=== PATIENT | male | born 1975 | race Caucasian/White ===

== ENCOUNTER 2022-04-09 23:08 | Emergency (ER) | payer BC ==
[~2022-04-09] VITALS: Ht 168 cm; Wt 73.4 kg
[~2022-04-09 23:08] MED LIST: CIPR-225 PO; HYDR-4226 PO; LORA0.5T PO; METR500T PO; OMEP20TA33 PO; ONDA8TAB9 PO
[2022-04-10 00:47] VITALS: BP_SYST 120; BP_SYST 123; BP_SYST 134; BP_DIAS 82; BP_DIAS 83; BP_DIAS 90
[2022-04-10] MEDS ORDERED: FAMOTIDINE 20MG/2ML IV (PEPCID) IV STA (01:09)
[2022-04-10 01:20] LABS: BASOPHILS % (AUTO) 0 % (0-10); EOSINOPHILS # (AUTO) 0.2 10^3/uL (0.0-0.3); EOSINOPHILS % (AUTO) 2 % (0-10); HEMATOCRIT 49 % (40-54); HEMOGLOBIN 16.4 g/dL (13.3-17.7); LYMPHOCYTES # (AUTO) 2.7 10^3/uL (1.0-4.0); LYMPHOCYTES % (AUTO) 28 % (12-44); MEAN CORPUSCULAR HEMOGLOBIN 30 pg (25-34); MEAN CORPUSCULAR HGB CONC 33 g/dL (32-36); MEAN CORPUSCULAR VOLUME 90 fL (80-99); MONOCYTES # (AUTO) 0.8 10^3/uL (0.0-1.0); MONOCYTES % (AUTO) 8 % (0-12); NEUTROPHILS % (AUTO) 61 % (42-75); PLATELET COUNT 242 10^3/uL (130-400); WHITE BLOOD COUNT 9.9 10^3/uL (4.3-11.0)
[2022-04-10 01:24] LABS: ALBUMIN 4.5 GM/DL (3.2-4.5); POTASSIUM 4.1 MMOL/L (3.6-5.0)
[2022-04-10 01:26] LABS: CALCIUM 9.3 MG/DL (8.5-10.1)
[2022-04-10 01:27] LABS: TOTAL PROTEIN 7.6 GM/DL (6.4-8.2)
[2022-04-10 01:29] LABS: BILIRUBIN,TOTAL 0.8 MG/DL (0.1-1.0)
[2022-04-10 01:33] LABS: MAGNESIUM 1.9 MG/DL (1.6-2.4)
--- NOTE | 2022-04-10 03:28 | ED Cardiac General ---
History of Present Illness General Chief Complaint: Chest Pain Stated Complaint: INDIGESTION Nursing Triage Note: PT PRESENTS TO ED STATING "DON'T FEEL WELL." HAS "HAD DIZZINESS" AND THOUGHT TO HAVE PREVIOUSLY HAD A TIA. FAST EXAM NEGATIVE. 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 History of Present Illness Date Seen by Provider: April 10, 2022 Time Seen by Provider: 01:00 Initial Comments 46-year-old male with PMH of newly diagnosed hypertension and GERD, is here with complaints of indigestion today after dinner and suddenly felt unwell. Patient thought the indigestion might be masking chest pain, so he came to the ER. Patient is started on enalapril recently, and today he checked his BP right after he was feeling the indigestion and he saw that it was low. He did not take his blood pressure medication in the night because of that. Denies fever, cough, abdominal pain, diarrhea, constipation, headache, weakness, blurry vision. Allergies and Home Medications Allergies Coded Allergies: KENANo Known Allergies (Unverified Allergy, Mild, 01/01/06) Patient Home Medication List Home Medication List Reviewed: Yes Ciprofloxacin HCl (Cipro) 500 Mg Tablet, 500 MG PO BID Prescribed by: LONDON ALEMAN on 09/16/17 1558 Hydrocodone/Acetaminophen (Hydrocodone/Acetaminophen 5 MG/325 MG TAB) 1 Each Tablet, 1 EACH PO Q4H PRN for PAIN-SEVERE Prescribed by: LONDON ALEMAN on 09/16/17 1554 Lorazepam (Ativan) 0.5 Mg Tablet, 1 EACH PO BID Prescribed by: DAYANNA LONG on 02/10/13 1026 Metronidazole (Flagyl) 500 Mg Tablet, 500 MG PO TID Prescribed by: LONDON ALEMAN on 09/16/17 1558 Omeprazole Magnesium (Prilosec Otc) 20 Mg Tablet.dr, 20 MG PO DAILY, (Reported) Entered as Reported by: MIYA GIBSON on 09/16/17 1525 Review of Systems Review of Systems Constitutional: no symptoms reported EENTM: No Symptoms Reported Respiratory: No Symptoms Reported Cardiovascular: Other (heartburn) Gastrointestinal: No Symptoms Reported Genitourinary: No Symptoms Reported Musculoskeletal: no symptoms reported Skin: no symptoms reported Psychiatric/Neurological: No Symptoms Reported Endocrine: No Symptoms Reported Hematologic/Lymphatic: No Symptoms Reported Past Rfvrxcw-Cdbtck-Lklxkr Hx Patient Social History Tobacco Use?: No Smokeless Tobacco Frequency: Current Everyday User Use of E-Cig and/or Vaping dev: No Substance use?: No Alcohol Use?: No Pt feels they are or have been: No Immunizations Up To Date Influenza Vaccine Up-to-Date: No; Not Current First/Initial COVID19 Vaccinat: 02/18 Second COVID19 Vaccination Adam: 03/21 COVID19 Vaccine 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[employer]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 Seasonal Allergies Seasonal Allergies: No Past Medical History Surgeries: Yes (EGD, COLONOSCOPY, L CATARACT) Tonsillectomy Respiratory: No Cardiac: No Neurological: No Reproductive Disorders: No Genitourinary: Yes Kidney Stones Gastrointestinal: Yes Gastroesophageal Reflux Musculoskeletal: No Endocrine: No HEENT: Yes Cataract Loss of Vision: Denies Cancer: No Psychosocial: Yes Anxiety Integumentary: No Physical Exam Vital Signs Vital Signs - First Documented 04/10/22 00:43 Temp 36.6 Pulse 80 Resp 20 B/P (MAP) 142/105 (117) Pulse Ox 97 O2 Delivery Room Air Capillary Refill : Less Than 3 Seconds Height, Weight, BMI Height: 5'5.00" Weight: 145lbs. oz. [id number]; 26.00 BMI Method:Stated General Appearance: No Apparent Distress, WD/WN HEENT: PERRL/EOMI Neck: Full Range of Motion Respiratory: Chest Non Tender, Lungs Clear, Normal Breath Sounds, No Accessory Muscle Use, No Respiratory Distress Cardiovascular: Regular Rate, Rhythm Gastrointestinal: Normal Bowel Sounds, Non Tender, Soft Neurologic/Psychiatric: Alert, Oriented x3, No Motor/Sensory Deficits, Normal Mood/Affect Skin: Normal Color Progress/Results/Core Measures Results/Orders Lab Results Laboratory Tests Test 04/10/22 00:15 04/10/22 02:45 Range/Units White Blood Count 9.9 4.3-11.0 10^3/uL Red Blood Count 5.52 4.30-5.52 10^6/uL Hemoglobin 16.4 13.3-17.7 g/dL Hematocrit 49 40-54 % Mean Corpuscular Volume 90 80-99 fL Mean Corpuscular Hemoglobin 30 25-34 pg Mean Corpuscular Hemoglobin Concent 33 32-36 g/dL Red Cell Distribution Width 13.2 10.0-14.5 % Platelet Count 242 130-400 10^3/uL Mean Platelet Volume 12.0 9.0-12.2 fL Immature Granulocyte % (Auto) 1 % Neutrophils (%) (Auto) 61 42-75 % Lymphocytes (%) (Auto) 28 12-44 % Monocytes (%) (Auto) 8 0-12 % Eosinophils (%) (Auto) 2 0-10 % Basophils (%) (Auto) 0 0-10 % Neutrophils # (Auto) 6.0 1.8-7.8 10^3/uL Lymphocytes # (Auto) 2.7 1.0-4.0 10^3/uL Monocytes # (Auto) 0.8 0.0-1.0 10^3/uL Eosinophils # (Auto) 0.2 0.0-0.3 10^3/uL Basophils # (Auto) 0.0 0.0-0.1 10^3/uL Immature Granulocyte # (Auto) 0.1 0.0-0.1 10^3/uL Sodium Level 137 135-145 MMOL/L Potassium Level 4.1 3.6-5.0 MMOL/L Chloride Level 105 98-107 MMOL/L Carbon Dioxide Level 18 L 21-32 MMOL/L Anion Gap 14 5-14 MMOL/L Blood Urea Nitrogen 18 7-18 MG/DL Creatinine 1.00 0.60-1.30 MG/DL Estimat Glomerular Filtration Rate 93 BUN/Creatinine Ratio 18 Glucose Level 102 70-105 MG/DL Calcium Level 9.3 8.5-10.1 MG/DL Corrected Calcium 8.9 8.5-10.1 MG/DL Magnesium Level 1.9 1.6-2.4 MG/DL Total Bilirubin 0.8 0.1-1.0 MG/DL Aspartate Amino Transf (AST/SGOT) 37 H 5-34 U/L Alanine Aminotransferase (ALT/SGPT) 73 H 0-55 U/L Alkaline Phosphatase 81 40-136 U/L Troponin I < 0.028 < 0.028 <0.028 NG/ML Total Protein 7.6 6.4-8.2 GM/DL Albumin 4.5 3.2-4.5 GM/DL My Orders Orders - ALEXEI HALEY MD Ekg Tracing (04/10/22 00:06) Cbc With Automated Diff (04/10/22 01:08) Magnesium (04/10/22 01:08) Chest 1 View, Ap/Pa Only (04/10/22 01:08) Ekg Tracing (04/10/22 01:08) Comprehensive Metabolic Panel (04/10/22 01:08) Monitor-Rhythm Ecg Trace Only (04/10/22 01:08) Ed Iv/Invasive Line Start (04/10/22 01:08) Troponin I [place] (04/10/22 01:08) Famotidine Injection (Pepcid Injection) (04/10/22 01:09) Troponin I [place] (04/10/22 02:24) Ekg Tracing (04/10/22 02:24) Vital Signs/I&O 04/10/22 04/10/22 00:43 00:47 Temp 36.6 Pulse 80 73 73 75 Resp 20 B/P (MAP) 142/105 (117) 123/83 (96) 120/82 (95) 134/90 (105) Pulse Ox 97 O2 Delivery Room Air Blood Pressure Mean: 105 Progress Progress Note : Progress Note 1. GERD/ ACS RULE OUT - Troponin x 2 negative - EKG x 2 normal - Pepcid 20mg iv STAT - Patient has cardiology appointment on . Advised to keep that appointment -PCP follow-up within 7 days -The patient was seen in the ED, and treated appropriately to presentation at a specific point in time. Patient is informed that there is a possibility that disease and illness can evolve and change in acuity rapidly or slowly after patient is discharged from the ER. Precautionary advice given to the patient for immediate return to ER if symptoms worsen or do not resolve, and to seek emergency care sooner rather than later. Pt also advised on the importance of PCP follow up and compliance with management and follow up plan with PCP and/or specialist, as this is part of the management plan. Pt verbally expressed understanding. Departure Impression Primary Impression: Ruled out for myocardial infarction Additional Impressions: Chest pain Qualified Codes: R07.9 - Chest pain, unspecified Gastroesophageal reflux disease Qualified Codes: K21.9 - Gastro-esophageal reflux disease without esophagitis Disposition: HOME, SELF-CARE Condition: Stable Departure-Patient Inst. Referrals: ISA CASH MD (PCP/Family) Primary Care Physician Patient Instructions: Acid Reflux and GERD in Adults (DC), Chest Pain Add. Discharge Instructions: - Patient has cardiology appointment on . Advised to keep that appointment -PCP follow-up within 7 days -The patient was seen in the ED, and treated appropriately to presentation at a specific point in time. Patient is informed that there is a possibility that disease and illness can evolve and change in acuity rapidly or slowly after patient is discharged from the ER. Precautionary advice given to the patient for immediate return to ER if symptoms worsen or do not resolve, and to seek emergency care sooner rather than later. Pt also advised on the importance of PCP follow up and compliance with management and follow up plan with PCP and/or specialist, as this is part of the management plan. Pt verbally expressed understanding. All discharge instructions reviewed with patient and/or family. Voiced un derstanding. ALEXEI HALEY MD April 10, 2022 03:28
--- NOTE | 2022-04-10 06:55 | Diagnostic Imaging Report ---
INDICATION: Chest pain FINDINGS: The lungs are clear. No failure, effusion or pneumothorax. IMPRESSION: No acute appearing abnormality. Dictated by: Dictated on workstation # [id number]
== END 2022-04-10 03:45 | disposition home or self-care (01) ==
LOC: EDUNIT# 23:08 → ER 23:13
DX: K21.9 Gastro-esophageal reflux disease without esophagitis (principal); I10 Essential (primary) hypertension; F17.220 Nicotine dependence, chewing tobacco, uncomplicated; Z79.899 Other long term (current) drug therapy; Z91.14 Patient's other noncompliance with medication regimen
CPT/HCPCS: 36415; 71045; 80053; 83735; 84484; 85025; 93005

== ENCOUNTER → 2022-04-18 | Outpatient (CLI) | payer BC ==
[~2022-04-18] VITALS: Ht 168 cm; Wt 74.0 kg
[~2022-04-18] MED LIST changes: +CATHETER FLUSH 10 ML SYR IVP PRN
[2022-04-18 13:16] VITALS: BP 133/83
--- NOTE | 2022-04-18 15:41 | NUCLEAR STRESS TEST ---
TREADMILL NUCLEAR STRESS TEST Date of procedure: 04/18/2022. Primary care provider: Kieran Chandler MD. Admitting physician: Cody Paul Jr., MD. INDICATION: Abnormal electrocardiogram. BASELINE ELECTROCARDIOGRAM: Sinus rhythm with early transition. STRESS TEST PROCEDURE: The patient was exercised for a total of 5 minutes and 55 seconds of the standard Leonel protocol achieving a maximum MET level of 7.1. The resting heart rate was 61 bpm and the peak heart rate was 175 bpm, which represents 101% of the maximum predicted heart rate. The resting blood pressure was 153/85 mmHg and the peak blood pressure was 230/74 mmHg. This represents a normal heart rate and a hypertensive blood pressure response to exercise with resting hypertension. The test was stopped due to target heart rate attained. There was no chest discomfort during the test. There were no arrhythmias during the test. There were no significant stress induced electrocardiogram changes. The patient exhibited fair exercise capacity for age. NUCLEAR PROCEDURE: The patient was administered 10.9 mCi of intravenous technetium 99m Tetrofosmin at rest for the rest images. The patient was subsequently administered 32.2 mCi of intravenous technetium 99 M Tetrofosmin at peak stress for the stress images. Following an appropriate wait after each injection, imaging was obtained. The images were subsequently processed and reformatted in the usual views. Gated imaging was obtained. The image quality was adequate with a mild degree of gastrointestinal attenuation artifact. CT attenuation correction was used as a adjunct to standard imaging. Both the corrected and uncorrected images were reviewed for interpretation. NUCLEAR RESULTS: There was normal myocardial perfusion in all segments without evidence of infarction or ischemia. There was normal left ventricular chamber size with an end-diastolic volume of 67 mL and an end-systolic volume of 27 mL. There was no evidence of transient ischemic dilatation. The TID ratio was 1.03. There was normal wall motion in all segments with a calculated ejection fraction of 60%. IMPRESSION: 1. Normal heart rate and a hypertensive blood pressure response to exercise with resting hypertension. 2. There was no chest discomfort, arrhythmias, or electrocardiogram changes during the test. 3. The patient exhibited fair exercise capacity for age at 5 minutes and 55 s econds of the Leonel protocol. 4. There was normal myocardial perfusion in all segments without evidence of infarction or ischemia. 5. There was normal wall motion in all segments with a calculated ejection fraction of 60%. Certain portions of this document may have been dictated utilizing voice recognition technology. Inherent to this technology, typographical and grammatical errors may exist. As much as I am diligent to identify and correct these mistakes, some errors may remain in the document. CODY PAUL JR, MD April 18, 2022 15:41
== END ==
LOC: CARD 10:22
PROVIDERS: ATTEND Internal Medicine Cardiovascular Disease
DX: R94.31 Abnormal electrocardiogram [ECG] [EKG] (principal)
CPT/HCPCS: 78452; 93017; 93306; A9502